=== PATIENT | male | born 1930 | race Caucasian/White ===

== ENCOUNTER 2017-07-15 12:02 | Inpatient (IN) | payer MEDICARE, OTHER ==
[2017-07-15] MEDS ORDERED: DILTIAZEM 25 MG INJ (12:25)
[2017-07-15] MEDS ORDERED: DILTIAZEM-D5W 125MG/125ML DRIP 125 ML (12:25)
[2017-07-15] MEDS: ENOXAPARIN 60 MG/0.6 ML SYG SC (12:46)
[2017-07-15 12:47] LABS: ADD MAN DIFF? NO
[2017-07-15 12:54] LABS: WHITE BLOOD COUNT 17.9 10^3/ul (4.8-10.8)
[2017-07-15 12:54] LABS: BASOPHILS % 0.2 % (0.0-2.0); HEMATOCRIT 50.8 % (42.0-52.0); LYMPHOCYTES # 0.6 10^3/ul (0.8-2.9); LYMPHOCYTES % 3.4 % (15.0-51.0); MEAN CORPUSCULAR HEMOGLOBIN 31.8 pg (29.0-33.0); MEAN CORPUSCULAR HGB CONC 33.5 g/dl (32.0-37.0); MEAN PLATELET VOLUME 10.8 fl (7.4-10.4); MONOCYTES % 5.5 % (0.0-11.0); NEUTROPHIL # 16.2 10^3/ul (1.6-7.5); NEUTROPHILS % 90.2 % (39.0-77.0); PLATELET COUNT 222 10^3/UL (140-415); RED BLOOD COUNT 5.35 10^6/ul (4.70-6.10); RED CELL DISTRIBUTION WIDTH 12.3 % (11.5-14.5)
[2017-07-15 13:17] LABS: ALANINE AMINOTRANSFERASE 24 IU/L (13-69); ALBUMIN 4.6 g/dl (3.3-4.9); ALBUMIN/GLOBULIN RATIO 1.27; ALKALINE PHOSPHATASE 84 IU/L (42-121); ANION GAP 19 (8-16); ASPARTATE AMINO TRANSFERASE 23 IU/L (15-46); BILIRUBIN,INDIRECT 1.5 mg/dl (0-1.1); BILIRUBIN,TOTAL 1.5 mg/dl (0.2-1.3); BLOOD UREA NITROGEN 23 mg/dl (7-20); CALCIUM 9.5 mg/dl (8.4-10.2); CARBON DIOXIDE 28 mmol/L (21-31); CHLORIDE 97 mmol/L (97-110); CREATININE 1.28 mg/dl (0.61-1.24); GLUCOSE 192 mg/dl (70-220); POTASSIUM 4.1 mmol/L (3.5-5.1); SODIUM 140 mmol/L (135-144); TOTAL PROTEIN 8.2 g/dl (6.1-8.1)
[2017-07-15 13:29] LABS: B-TYPE NATRIURETIC PEPTIDE 3320 PG/ML (0-450); TROPONIN-I 0.025 ng/ml (0.00-0.12)
[2017-07-15 13:32] LABS: INR 1.17; PARTIAL THROMBOPLASTIN TIME 28.6 Sec (25.0-35.0); PROTIME 15.1 Sec (11.9-14.9); PT RATIO 1.2
[2017-07-15] MEDS: CEFEPIME 1GM/50 ML (PMX) 50 ML IVPB (15:37)
[2017-07-15] MEDS: VANCOMYCIN 1 GM (PMX) 250 ML IVPB (16:34)
[2017-07-15] MEDS: SOD CHLORIDE 0.9% 1,000 ML IV (19:29)
[2017-07-15] MEDS ORDERED: ACETAMINOPHEN 325 MG TAB PO ×2 (19:30→21:30)
[2017-07-15] MEDS ORDERED: ONDANSETRON 4 MG INJ IV ×2 (19:30→21:30)
[2017-07-15] MEDS ORDERED: BISACODYL (EC) 5 MG TAB PO (21:30)
[2017-07-15] MEDS ORDERED: NACL 0.9% 3 ML SYG IV (21:30)
[2017-07-15] MEDS ORDERED: DOCUSATE SODIUM 100 MG CAP PO (21:30)
[2017-07-15 22:52] LABS: MAGNESIUM 1.6 mg/dl (1.7-2.5)
[2017-07-15] MEDS ORDERED: ALBUTEROL/IPRATROPIUM (NEB) 3 ML AMP (23:51)
[2017-07-16] MEDS: ALBUTEROL/IPRATROPIUM (NEB) 3 ML AMP HHN ×6 (00:25→21:00)
[2017-07-16] MEDS: ZOLPIDEM 5 MG TAB PO ×2 (00:44→20:26)
[2017-07-16] MEDS: PANTOPRAZOLE 40 MG INJ IV (06:00)
[2017-07-16] MEDS: predniSONE 20 MG TAB PO (08:32)
[2017-07-16 08:54] LABS: ADD MAN DIFF? NO
[2017-07-16 09:06] LABS: BASOPHILS % 0.2 % (0.0-2.0); HEMATOCRIT 44.2 % (42.0-52.0); HEMOGLOBIN 14.7 g/dl (14.0-18.0); LYMPHOCYTES # 0.8 10^3/ul (0.8-2.9); LYMPHOCYTES % 4.9 % (15.0-51.0); MEAN CORPUSCULAR HEMOGLOBIN 31.7 pg (29.0-33.0); MEAN CORPUSCULAR HGB CONC 33.3 g/dl (32.0-37.0); MEAN CORPUSCULAR VOLUME 95.3 fl (82.0-101.0); MEAN PLATELET VOLUME 11.3 fl (7.4-10.4); MONOCYTE # 1.2 10^3/ul (0.3-0.9); MONOCYTES % 7.2 % (0.0-11.0); NEUTROPHIL # 14.6 10^3/ul (1.6-7.5); NEUTROPHILS % 87.1 % (39.0-77.0); PLATELET COUNT 184 10^3/UL (140-415); RED BLOOD COUNT 4.64 10^6/ul (4.70-6.10); RED CELL DISTRIBUTION WIDTH 12.4 % (11.5-14.5)
[2017-07-16 09:06] LABS: WHITE BLOOD COUNT 16.8 10^3/ul (4.8-10.8)
[2017-07-16 09:42] LABS: ALANINE AMINOTRANSFERASE 28 IU/L (13-69); ALBUMIN 3.6 g/dl (3.3-4.9); ALBUMIN/GLOBULIN RATIO 1.16; ALKALINE PHOSPHATASE 60 IU/L (42-121); ANION GAP 14 (8-16); ASPARTATE AMINO TRANSFERASE 17 IU/L (15-46); BILIRUBIN,INDIRECT 0.9 mg/dl (0-1.1); BILIRUBIN,TOTAL 0.9 mg/dl (0.2-1.3); BLOOD UREA NITROGEN 22 mg/dl (7-20); CALCIUM 8.9 mg/dl (8.4-10.2); CARBON DIOXIDE 27 mmol/L (21-31); CHLORIDE 102 mmol/L (97-110); CREATININE 1.05 mg/dl (0.61-1.24); GLUCOSE 147 mg/dl (70-220); MAGNESIUM 1.7 mg/dl (1.7-2.5); POTASSIUM 3.9 mmol/L (3.5-5.1); SODIUM 139 mmol/L (135-144); TOTAL PROTEIN 6.7 g/dl (6.1-8.1)
[2017-07-16 09:48] LABS: HEMOGLOBIN A1C 5.7 % (0-5.9)
[2017-07-16 10:16] LABS: THYROID STIMULATING HORMONE 0.704 MIU/L (0.465-4.680)
[2017-07-16] MEDS: LEVOFLOXACIN 750MG/D5W (PMX) 150 ML IVPB (11:16)
[2017-07-16] MEDS: MAGNESIUM SULFATE 2 GM/50 ML 50 ML IVPB (13:04)
[2017-07-16] MEDS: DILTIAZEM (CD) 120 MG CAP PO ×2 (15:23→20:25)
[2017-07-16] MEDS: SALMETEROL/FLUTICASONE 100/50 INHA INH ×2 (20:24→20:39)
[2017-07-16] MEDS: MONTELUKAST 10 MG TAB PO (20:26)
[2017-07-17] MEDS: ALBUTEROL/IPRATROPIUM (NEB) 3 ML AMP HHN ×6 (01:00→20:38)
[2017-07-17] MEDS: PANTOPRAZOLE 40 MG INJ IV (06:00)
[2017-07-17 08:17] LABS: ADD MAN DIFF? NO
[2017-07-17 08:21] LABS: WHITE BLOOD COUNT 15.8 10^3/ul (4.8-10.8)
[2017-07-17 08:21] LABS: BASOPHILS % 0.1 % (0.0-2.0); EOSINOPHILS % 0.1 % (0.0-7.0); HEMOGLOBIN 14.9 g/dl (14.0-18.0); LYMPHOCYTES # 0.9 10^3/ul (0.8-2.9); LYMPHOCYTES % 5.4 % (15.0-51.0); MEAN CORPUSCULAR HEMOGLOBIN 31.9 pg (29.0-33.0); MEAN CORPUSCULAR HGB CONC 33.9 g/dl (32.0-37.0); MEAN CORPUSCULAR VOLUME 94.2 fl (82.0-101.0); MEAN PLATELET VOLUME 10.8 fl (7.4-10.4); MONOCYTE # 1.1 10^3/ul (0.3-0.9); MONOCYTES % 6.6 % (0.0-11.0); NEUTROPHIL # 13.8 10^3/ul (1.6-7.5); PLATELET COUNT 204 10^3/UL (140-415); RED BLOOD COUNT 4.67 10^6/ul (4.70-6.10); RED CELL DISTRIBUTION WIDTH 12.3 % (11.5-14.5)
[2017-07-17 08:45] LABS: ANION GAP 15 (8-16); BLOOD UREA NITROGEN 28 mg/dl (7-20); CALCIUM 8.9 mg/dl (8.4-10.2); CARBON DIOXIDE 30 mmol/L (21-31); CHLORIDE 100 mmol/L (97-110); CREATININE 1.02 mg/dl (0.61-1.24); GLUCOSE 142 mg/dl (70-220); MAGNESIUM 2.2 mg/dl (1.7-2.5); POTASSIUM 4.2 mmol/L (3.5-5.1); SODIUM 141 mmol/L (135-144)
[2017-07-17] MEDS: SALMETEROL/FLUTICASONE 100/50 INHA INH (08:58)
[2017-07-17] MEDS: TIOTROPIUM 18 MCG CAPSULE INHA DEV INH (08:59)
[2017-07-17] MEDS: predniSONE 20 MG TAB PO (09:00)
[2017-07-17] MEDS: DILTIAZEM (CD) 120 MG CAP PO ×2 (09:02→20:25)
[2017-07-17] MEDS ORDERED: ISOSORBIDE DINITRATE 5 MG TAB PO (13:00)
[2017-07-17] MEDS: ASPIRIN 81 MG TAB PO (15:03)
[2017-07-17] MEDS: AZITHROMYCIN 250 MG TAB PO (17:50)
[2017-07-17] MEDS: SALMETEROL/FLUTICASONE 250/50 INHA INH (20:24)
[2017-07-17] MEDS: THEOPHYLLINE (SR) 300 MG CAP PO (20:25)
[2017-07-17] MEDS: ZOLPIDEM 5 MG TAB PO (20:26)
[2017-07-17] MEDS: MONTELUKAST 10 MG TAB PO (20:26)
[2017-07-18] MEDS: ALBUTEROL/IPRATROPIUM (NEB) 3 ML AMP HHN ×3 (00:40→08:56)
[2017-07-18] MEDS: ZOLPIDEM 5 MG TAB PO (02:40)
[2017-07-18] MEDS: LEVOFLOXACIN 500 MG TAB PO (05:22)
[2017-07-18] MEDS: PANTOPRAZOLE 40 MG INJ IV (05:22)
[2017-07-18] MEDS: ASPIRIN 81 MG TAB PO (08:39)
[2017-07-18] MEDS: predniSONE 20 MG TAB PO (08:41)
[2017-07-18] MEDS: DILTIAZEM (CD) 120 MG CAP PO (08:44)
[2017-07-18] MEDS: SALMETEROL/FLUTICASONE 250/50 INHA INH (08:44)
[2017-07-18] MEDS: TIOTROPIUM 18 MCG CAPSULE INHA DEV INH (08:44)
== END 2017-07-18 12:20 | disposition home or self-care (01) | DRG 190 ==
LOC: E/R 12:02 → MS4 19:30
DX: J44.0 Chronic obstructive pulmonary disease with (acute) lower respiratory infection (principal); J18.9 Pneumonia, unspecified organism; N17.9 Acute kidney failure, unspecified; I47.1 Supraventricular tachycardia; I10 Essential (primary) hypertension; E83.42 Hypomagnesemia; Z99.81 Dependence on supplemental oxygen
CPT/HCPCS: 36415; 71045; 80048; 80053; 83036; 83735; 83880; 84443; 84484; 85025; 85610; 85730; 87040; 93005; 93306; 94640; 94664; 96372; 96374; 96375; 99285-25

== ENCOUNTER 2017-07-19 19:43 | Inpatient (IN) | payer MEDICARE, OTHER ==
[2017-07-20 01:12] LABS: AADO2 Arterial 109.9 mmHg (7.0-24.0); Allen Test ACCEPTAB; Arterial Base Excess 4.8 mmol/L (-3.0-3); Arterial COHb 0.9 % (0.0-3.0); Arterial Fraction of Oxyhgb 83.2 % (93.0-99.0); Arterial HCO3 29.2 mmol/L (22.0-26.0); Arterial MetHb 0.1 % (0.0-1.5); Arterial Total Hemglobin 15.9 g/dl (12.0-18.0); Arterial pCO2 42.3 mmhg (35-45); MODE NASAL CANNULA; Site Right Radial
[2017-07-20 01:14] LABS: ADD MAN DIFF? NO
[2017-07-20 01:15] LABS: WHITE BLOOD COUNT 16.6 10^3/ul (4.8-10.8)
[2017-07-20 01:15] LABS: BASOPHIL # 0.1 10^3/ul (0.0-0.1); BASOPHILS % 0.5 % (0.0-2.0); EOSINOPHILS % 0.2 % (0.0-7.0); HEMATOCRIT 49.7 % (42.0-52.0); HEMOGLOBIN 16.6 g/dl (14.0-18.0); LYMPHOCYTES # 1.6 10^3/ul (0.8-2.9); LYMPHOCYTES % 9.7 % (15.0-51.0); MEAN CORPUSCULAR HEMOGLOBIN 31.6 pg (29.0-33.0); MEAN CORPUSCULAR HGB CONC 33.4 g/dl (32.0-37.0); MEAN CORPUSCULAR VOLUME 94.5 fl (82.0-101.0); MEAN PLATELET VOLUME 10.7 fl (7.4-10.4); MONOCYTE # 1.4 10^3/ul (0.3-0.9); MONOCYTES % 8.2 % (0.0-11.0); NEUTROPHIL # 13.1 10^3/ul (1.6-7.5); NEUTROPHILS % 78.9 % (39.0-77.0); PLATELET COUNT 289 10^3/UL (140-415); RED BLOOD COUNT 5.26 10^6/ul (4.70-6.10); RED CELL DISTRIBUTION WIDTH 12.2 % (11.5-14.5)
[2017-07-20 01:50] LABS: ALANINE AMINOTRANSFERASE 84 IU/L (13-69); ALBUMIN 3.9 g/dl (3.3-4.9); ALKALINE PHOSPHATASE 106 IU/L (42-121); ANION GAP 12 (8-16); ASPARTATE AMINO TRANSFERASE 48 IU/L (15-46); BILIRUBIN,INDIRECT 0.9 mg/dl (0-1.1); BILIRUBIN,TOTAL 0.9 mg/dl (0.2-1.3); BLOOD UREA NITROGEN 26 mg/dl (7-20); CALCIUM 9.5 mg/dl (8.4-10.2); CARBON DIOXIDE 34 mmol/L (21-31); CHLORIDE 97 mmol/L (97-110); CREATININE 1.29 mg/dl (0.61-1.24); GLUCOSE 129 mg/dl (70-220); INR 1.02; POTASSIUM 4.2 mmol/L (3.5-5.1); PROTIME 13.5 Sec (11.9-14.9); PT RATIO 1.1; SODIUM 139 mmol/L (135-144); TOTAL PROTEIN 7.8 g/dl (6.1-8.1)
[2017-07-20 01:51] LABS: PARTIAL THROMBOPLASTIN TIME 25.5 Sec (25.0-35.0)
[2017-07-20 01:58] LABS: B-TYPE NATRIURETIC PEPTIDE 3920 PG/ML (0-450)
[2017-07-20 02:02] LABS: TROPONIN-I 0.041 ng/ml (0.00-0.12)
[2017-07-20] MEDS: CEFTRIAXONE 1 GM/50 ML (PMX) 50 ML IVPB (02:35)
[2017-07-20] MEDS: AZITHROMYCIN 500MG/NS (PMX) 250 ML IV (03:08)
[2017-07-20] MEDS ORDERED: NACL 0.9% 3 ML SYG IV (06:00)
[2017-07-20] MEDS ORDERED: HYDROCODONE/APAP (5/325) TAB PO (06:00)
[2017-07-20] MEDS ORDERED: VANCOMYCIN IV PER PHARMACY XX (06:00)
[2017-07-20] MEDS ORDERED: NITROGLYCERIN (SL) 0.4 MG TAB SL (06:00)
[2017-07-20] MEDS ORDERED: NA PHOSPHATE/BIPHOS 133 ML ENEMA PR (06:00)
[2017-07-20] MEDS ORDERED: ACETAMINOPHEN 325 MG TAB PO (06:00)
[2017-07-20] MEDS ORDERED: MAGNESIUM HYDROXIDE 30ML CUP PO (06:00)
[2017-07-20] MEDS ORDERED: morphine 2 MG INJ IV (06:00)
[2017-07-20] MEDS ORDERED: ALBUTEROL/IPRATROPIUM (NEB) 3 ML AMP HHN (06:00)
[2017-07-20] MEDS ORDERED: ONDANSETRON 4 MG INJ IV (06:00)
[2017-07-20 06:53] LABS: FREE T4 (FREE THYROXINE) 1.39 ng/dl (0.85-1.93)
[2017-07-20] MEDS: VANCOMYCIN 1.25 GM in SODIUM CHLORIDE 0.45 % 250 ML IVPB (07:00)
[2017-07-20] MEDS: SOD CHLORIDE 0.45% 1,000 ML IV ×2 (08:24→19:26)
[2017-07-20] MEDS: PIPER-TAZO 2.25 GM (PMX) 50 ML IVPB (08:24)
[2017-07-20] MEDS: ASPIRIN 81 MG TAB PO (08:25)
[2017-07-20] MEDS: FUROSEMIDE 40 MG INJ IV (08:25)
[2017-07-20] MEDS: PANTOPRAZOLE (EC) 40 MG TAB PO (08:25)
[2017-07-20] MEDS: DILTIAZEM (CD) 120 MG CAP PO ×2 (08:27→21:00)
[2017-07-20] MEDS: HEPARIN 5,000 UNIT/0.5 ML VIAL SC ×2 (08:31→21:08)
[2017-07-20] MEDS: TIOTROPIUM 18 MCG CAPSULE INHA DEV INH (09:00)
[2017-07-20] MEDS: SALMETEROL/FLUTICASONE 250/50 INHA INH ×2 (09:00→20:59)
[2017-07-20] MEDS ORDERED: IPRATROPIUM (NEB) 0.5 MG/2.5 ML AMP HHN (10:00)
[2017-07-20] MEDS: LEVALBUTEROL (NEB) 1.25 MG/0.5 ML AMP HHN ×3 (14:38→20:36)
[2017-07-20] MEDS: IPRATROPIUM (NEB) 0.5 MG/2.5 ML AMP HHN ×3 (14:38→20:36)
[2017-07-20] MEDS: CEFEPIME 2GM/50 ML (PMX) 50 ML IVPB ×2 (16:00→20:59)
[2017-07-20] MEDS: THEOPHYLLINE (SR) 300 MG CAP PO (21:01)
[2017-07-20] MEDS: MONTELUKAST 10 MG TAB PO (21:01)
[2017-07-21] MEDS: LEVALBUTEROL (NEB) 1.25 MG/0.5 ML AMP HHN ×6 (01:15→20:50)
[2017-07-21] MEDS: PANTOPRAZOLE (EC) 40 MG TAB PO (05:39)
[2017-07-21] MEDS: SOD CHLORIDE 0.45% 1,000 ML IV ×2 (06:19→21:55)
[2017-07-21 06:45] LABS: ADD MAN DIFF? NO
[2017-07-21 06:52] LABS: WHITE BLOOD COUNT 14.5 10^3/ul (4.8-10.8)
[2017-07-21 06:52] LABS: BASOPHIL # 0.1 10^3/ul (0.0-0.1); BASOPHILS % 0.5 % (0.0-2.0); EOSINOPHILS % 0.2 % (0.0-7.0); HEMATOCRIT 40.5 % (42.0-52.0); HEMOGLOBIN 13.7 g/dl (14.0-18.0); LYMPHOCYTES # 0.9 10^3/ul (0.8-2.9); LYMPHOCYTES % 6.1 % (15.0-51.0); MEAN CORPUSCULAR HEMOGLOBIN 31.6 pg (29.0-33.0); MEAN CORPUSCULAR HGB CONC 33.8 g/dl (32.0-37.0); MEAN CORPUSCULAR VOLUME 93.5 fl (82.0-101.0); MEAN PLATELET VOLUME 11.2 fl (7.4-10.4); MONOCYTE # 1.1 10^3/ul (0.3-0.9); MONOCYTES % 7.3 % (0.0-11.0); NEUTROPHIL # 11.8 10^3/ul (1.6-7.5); NEUTROPHILS % 81.3 % (39.0-77.0); PLATELET COUNT 228 10^3/UL (140-415); RED BLOOD COUNT 4.33 10^6/ul (4.70-6.10); RED CELL DISTRIBUTION WIDTH 12.4 % (11.5-14.5)
[2017-07-21 07:19] LABS: ANION GAP 11 (8-16); BLOOD UREA NITROGEN 25 mg/dl (7-20); CALCIUM 8.2 mg/dl (8.4-10.2); CARBON DIOXIDE 32 mmol/L (21-31); CHLORIDE 97 mmol/L (97-110); CREATININE 1.03 mg/dl (0.61-1.24); GLUCOSE 177 mg/dl (70-220); MAGNESIUM 1.6 mg/dl (1.7-2.5); PHOSPHORUS 2.9 mg/dl (2.5-4.9); POTASSIUM 3.2 mmol/L (3.5-5.1); SODIUM 137 mmol/L (135-144)
[2017-07-21 07:20] LABS: CHOLESTEROL 131 mg/dl (100-200)
[2017-07-21 07:20] LABS: CHOL/HDL RATIO 5.4 RATIO; HDL CHOLESTEROL 24 mg/dl (31-75); LDL CHOLESTEROL,CALCULATED 88 mg/dl; TRIGLYCERIDES 93 mg/dl (0-149)
[2017-07-21 07:45] LABS: THYROID STIMULATING HORMONE 0.918 MIU/L (0.465-4.680)
[2017-07-21] MEDS: IPRATROPIUM (NEB) 0.5 MG/2.5 ML AMP HHN ×4 (07:49→20:50)
[2017-07-21] MEDS ORDERED: VANCOMYCIN 750 MG in DEXTROSE 5% 150 ML IVPB (08:00)
[2017-07-21] MEDS: TIOTROPIUM 18 MCG CAPSULE INHA DEV INH (08:57)
[2017-07-21] MEDS: SALMETEROL/FLUTICASONE 250/50 INHA INH ×2 (08:57→22:12)
[2017-07-21] MEDS: DILTIAZEM (CD) 120 MG CAP PO ×2 (08:59→22:12)
[2017-07-21] MEDS: CEFEPIME 2GM/50 ML (PMX) 50 ML IVPB ×2 (09:02→22:13)
[2017-07-21] MEDS: ASPIRIN 81 MG TAB PO (09:02)
[2017-07-21] MEDS: HEPARIN 5,000 UNIT/0.5 ML VIAL SC ×2 (09:03→22:19)
[2017-07-21] MEDS: POTASSIUM CHLORIDE (SR) 20 MEQ TAB PO (09:21)
[2017-07-21] MEDS: MAGNESIUM SULFATE 2 GM/50 ML 50 ML IVPB (09:22)
[2017-07-21] MEDS ORDERED: VANCOMYCIN IV PER PHARMACY XX (09:30)
[2017-07-21 09:45] LABS: HEMOGLOBIN A1C 5.9 % (0-5.9)
[2017-07-21] MEDS: VANCOMYCIN 750 MG in DEXTROSE 5% 150 ML IVPB (11:44)
[2017-07-21] MEDS: LORAZEPAM 2 MG INJ IV (12:42)
[2017-07-21] MEDS: MONTELUKAST 10 MG TAB PO (21:00)
[2017-07-22] MEDS: LEVALBUTEROL (NEB) 1.25 MG/0.5 ML AMP HHN ×6 (00:49→21:35)
[2017-07-22] MEDS: LORAZEPAM 2 MG INJ IV (03:58)
[2017-07-22] MEDS: PANTOPRAZOLE (EC) 40 MG TAB PO (06:32)
[2017-07-22] MEDS: DOCUSATE SODIUM 100 MG CAP PO (06:32)
[2017-07-22 08:41] LABS: ADD MAN DIFF? NO
[2017-07-22 08:44] LABS: ABNORMAL IP MESSAGE 1; BASOPHIL # 0.1 10^3/ul (0.0-0.1); BASOPHILS % 0.6 % (0.0-2.0); EOSINOPHILS # 0.1 10^3/ul (0.0-0.5); EOSINOPHILS % 0.5 % (0.0-7.0); LYMPHOCYTES # 0.6 10^3/ul (0.8-2.9); LYMPHOCYTES % 4.3 % (15.0-51.0); MEAN CORPUSCULAR HEMOGLOBIN 31.8 pg (29.0-33.0); MEAN CORPUSCULAR HGB CONC 33.3 g/dl (32.0-37.0); MEAN CORPUSCULAR VOLUME 95.5 fl (82.0-101.0); MEAN PLATELET VOLUME 10.8 fl (7.4-10.4); MONOCYTE # 0.8 10^3/ul (0.3-0.9); MONOCYTES % 5.8 % (0.0-11.0); NEUTROPHIL # 11.9 10^3/ul (1.6-7.5); NEUTROPHILS % 83.7 % (39.0-77.0); PLATELET COUNT 265 10^3/UL (140-415); POSITIVE DIFF @See below; RED CELL DISTRIBUTION WIDTH 12.1 % (11.5-14.5)
[2017-07-22 08:44] LABS: WHITE BLOOD COUNT 14.2 10^3/ul (4.8-10.8)
[2017-07-22 09:04] LABS: ANION GAP 15 (8-16); BLOOD UREA NITROGEN 21 mg/dl (7-20); CALCIUM 8.1 mg/dl (8.4-10.2); CARBON DIOXIDE 29 mmol/L (21-31); CHLORIDE 99 mmol/L (97-110); CREATININE 1.38 mg/dl (0.61-1.24); GLUCOSE 139 mg/dl (70-220); POTASSIUM 4.1 mmol/L (3.5-5.1); SODIUM 139 mmol/L (135-144)
[2017-07-22] MEDS ORDERED: POTASSIUM CHLORIDE (SR) 20 MEQ TAB PO (09:04)
[2017-07-22] MEDS: IPRATROPIUM (NEB) 0.5 MG/2.5 ML AMP HHN ×4 (09:05→21:35)
[2017-07-22] MEDS: SALMETEROL/FLUTICASONE 250/50 INHA INH ×2 (10:12→20:29)
[2017-07-22] MEDS: DILTIAZEM (CD) 120 MG CAP PO ×2 (10:12→20:26)
[2017-07-22] MEDS: ASPIRIN 81 MG TAB PO (10:13)
[2017-07-22] MEDS: HEPARIN 5,000 UNIT/0.5 ML VIAL SC ×2 (10:15→20:28)
[2017-07-22] MEDS ORDERED: MAGNESIUM SULFATE 3 GM in DEXTROSE 5% 100 ML IVPB (11:00)
[2017-07-22] MEDS: CEFEPIME 2GM/50 ML (PMX) 50 ML IVPB ×2 (11:39→20:28)
[2017-07-22] MEDS: SOD CHLORIDE 0.9% 500 ML IV (12:08)
[2017-07-22] MEDS: SOD CHLORIDE 0.9% 1,000 ML IV (13:00)
[2017-07-22] MEDS: VANCOMYCIN 750 MG in DEXTROSE 5% 150 ML IVPB (17:50)
[2017-07-22] MEDS: TIOTROPIUM 18 MCG CAPSULE INHA DEV INH (17:51)
[2017-07-22] MEDS: MONTELUKAST 10 MG TAB PO (21:01)
[2017-07-23] MEDS: LORAZEPAM 2 MG INJ IV ×2 (00:24→20:46)
[2017-07-23] MEDS: SOD CHLORIDE 0.9% 1,000 ML IV ×2 (00:50→15:30)
[2017-07-23] MEDS: LEVALBUTEROL (NEB) 1.25 MG/0.5 ML AMP HHN ×6 (01:00→21:26)
[2017-07-23] MEDS: PANTOPRAZOLE (EC) 40 MG TAB PO (06:03)
[2017-07-23 08:13] LABS: ADD MAN DIFF? NO
[2017-07-23 08:16] LABS: ABNORMAL IP MESSAGE 1; BASOPHIL # 0.1 10^3/ul (0.0-0.1); BASOPHILS % 0.6 % (0.0-2.0); EOSINOPHILS # 0.3 10^3/ul (0.0-0.5); EOSINOPHILS % 2.3 % (0.0-7.0); HEMATOCRIT 39.5 % (42.0-52.0); HEMOGLOBIN 13.1 g/dl (14.0-18.0); LYMPHOCYTES # 0.9 10^3/ul (0.8-2.9); LYMPHOCYTES % 8.5 % (15.0-51.0); MEAN CORPUSCULAR HEMOGLOBIN 31.8 pg (29.0-33.0); MEAN CORPUSCULAR HGB CONC 33.2 g/dl (32.0-37.0); MEAN CORPUSCULAR VOLUME 95.9 fl (82.0-101.0); MEAN PLATELET VOLUME 10.1 fl (7.4-10.4); MONOCYTE # 0.8 10^3/ul (0.3-0.9); MONOCYTES % 7.7 % (0.0-11.0); NEUTROPHIL # 8.2 10^3/ul (1.6-7.5); NEUTROPHILS % 75.8 % (39.0-77.0); PLATELET COUNT 272 10^3/UL (140-415); POSITIVE DIFF @See below; RED BLOOD COUNT 4.12 10^6/ul (4.70-6.10); RED CELL DISTRIBUTION WIDTH 12.4 % (11.5-14.5)
[2017-07-23 08:16] LABS: WHITE BLOOD COUNT 10.8 10^3/ul (4.8-10.8)
[2017-07-23 08:54] LABS: ANION GAP 14 (8-16); BLOOD UREA NITROGEN 22 mg/dl (7-20); CALCIUM 8.1 mg/dl (8.4-10.2); CARBON DIOXIDE 28 mmol/L (21-31); CHLORIDE 101 mmol/L (97-110); GLUCOSE 107 mg/dl (70-220); POTASSIUM 4.5 mmol/L (3.5-5.1); SODIUM 138 mmol/L (135-144)
[2017-07-23] MEDS: IPRATROPIUM (NEB) 0.5 MG/2.5 ML AMP HHN ×4 (09:41→21:26)
[2017-07-23] MEDS: ASPIRIN 81 MG TAB PO (09:58)
[2017-07-23] MEDS: SALMETEROL/FLUTICASONE 250/50 INHA INH ×2 (09:58→20:43)
[2017-07-23] MEDS: CEFEPIME 2GM/50 ML (PMX) 50 ML IVPB (09:59)
[2017-07-23] MEDS: TIOTROPIUM 18 MCG CAPSULE INHA DEV INH (10:00)
[2017-07-23] MEDS: DILTIAZEM (CD) 120 MG CAP PO ×2 (10:04→20:45)
[2017-07-23] MEDS: HEPARIN 5,000 UNIT/0.5 ML VIAL SC ×2 (10:05→20:46)
[2017-07-23 12:00] LABS: VANCOMYCIN,TROUGH 8.8 ug/ml (10.0-20.0)
[2017-07-23] MEDS: IODIXANOL LOCM 100 ML BTL (12:34)
[2017-07-23] MEDS: SOD CHLORIDE 0.9% 100 ML (12:34)
[2017-07-23] MEDS: MONTELUKAST 10 MG TAB PO (20:49)
[2017-07-24] MEDS: LEVALBUTEROL (NEB) 1.25 MG/0.5 ML AMP HHN ×4 (01:27→15:30)
[2017-07-24] MEDS: hydrALAzine 20 MG INJ IV (01:27)
[2017-07-24] MEDS: SOD CHLORIDE 0.9% 1,000 ML IV ×3 (02:29→22:00)
[2017-07-24] MEDS: PANTOPRAZOLE (EC) 40 MG TAB PO (06:00)
[2017-07-24 08:30] LABS: ADD MAN DIFF? NO
[2017-07-24 08:37] LABS: BASOPHIL # 0.1 10^3/ul (0.0-0.1); BASOPHILS % 0.6 % (0.0-2.0); EOSINOPHILS # 0.1 10^3/ul (0.0-0.5); HEMATOCRIT 42.6 % (42.0-52.0); HEMOGLOBIN 14.2 g/dl (14.0-18.0); LYMPHOCYTES # 0.8 10^3/ul (0.8-2.9); LYMPHOCYTES % 6.7 % (15.0-51.0); MEAN CORPUSCULAR HEMOGLOBIN 31.3 pg (29.0-33.0); MEAN CORPUSCULAR HGB CONC 33.3 g/dl (32.0-37.0); MEAN CORPUSCULAR VOLUME 93.8 fl (82.0-101.0); MEAN PLATELET VOLUME 10.8 fl (7.4-10.4); MONOCYTE # 0.6 10^3/ul (0.3-0.9); MONOCYTES % 5.3 % (0.0-11.0); NEUTROPHIL # 9.4 10^3/ul (1.6-7.5); NEUTROPHILS % 81.9 % (39.0-77.0); PLATELET COUNT 255 10^3/UL (140-415); RED BLOOD COUNT 4.54 10^6/ul (4.70-6.10); RED CELL DISTRIBUTION WIDTH 12.4 % (11.5-14.5)
[2017-07-24 08:37] LABS: WHITE BLOOD COUNT 11.5 10^3/ul (4.8-10.8)
[2017-07-24 08:59] LABS: ANION GAP 16 (8-16); BLOOD UREA NITROGEN 22 mg/dl (7-20); CALCIUM 8.5 mg/dl (8.4-10.2); CARBON DIOXIDE 26 mmol/L (21-31); CHLORIDE 101 mmol/L (97-110); CREATININE 1.86 mg/dl (0.61-1.24); GLUCOSE 111 mg/dl (70-220); POTASSIUM 4.6 mmol/L (3.5-5.1); SODIUM 138 mmol/L (135-144)
[2017-07-24] MEDS: CEFEPIME 2GM/50 ML (PMX) 50 ML IVPB (09:24)
[2017-07-24] MEDS: SALMETEROL/FLUTICASONE 250/50 INHA INH ×2 (09:24→21:08)
[2017-07-24] MEDS: TIOTROPIUM 18 MCG CAPSULE INHA DEV INH (09:24)
[2017-07-24] MEDS: DILTIAZEM (CD) 120 MG CAP PO ×2 (09:25→21:09)
[2017-07-24] MEDS: ASPIRIN 81 MG TAB PO (09:25)
[2017-07-24] MEDS: HEPARIN 5,000 UNIT/0.5 ML VIAL SC ×2 (09:26→21:10)
[2017-07-24] MEDS: IPRATROPIUM (NEB) 0.5 MG/2.5 ML AMP HHN ×4 (09:30→20:59)
[2017-07-24] MEDS: SOD CHLORIDE 0.9% 500 ML IV (13:30)
[2017-07-24] MEDS ORDERED: GUAIFENESIN/DM 5ML CUP PO (13:30)
[2017-07-24] MEDS: MONTELUKAST 10 MG TAB PO (21:09)
[2017-07-25] MEDS: PANTOPRAZOLE (EC) 40 MG TAB PO (05:41)
[2017-07-25] MEDS: LORAZEPAM 2 MG INJ IV ×2 (05:46→21:00)
[2017-07-25 06:47] LABS: ADD MAN DIFF? NO
[2017-07-25 07:00] LABS: WHITE BLOOD COUNT 11.2 10^3/ul (4.8-10.8)
[2017-07-25 07:00] LABS: BASOPHIL # 0.1 10^3/ul (0.0-0.1); BASOPHILS % 0.4 % (0.0-2.0); EOSINOPHILS # 0.1 10^3/ul (0.0-0.5); EOSINOPHILS % 1.1 % (0.0-7.0); HEMATOCRIT 39.7 % (42.0-52.0); HEMOGLOBIN 13.4 g/dl (14.0-18.0); LYMPHOCYTES # 0.8 10^3/ul (0.8-2.9); MEAN CORPUSCULAR HEMOGLOBIN 31.9 pg (29.0-33.0); MEAN CORPUSCULAR HGB CONC 33.8 g/dl (32.0-37.0); MEAN CORPUSCULAR VOLUME 94.5 fl (82.0-101.0); MONOCYTE # 0.5 10^3/ul (0.3-0.9); MONOCYTES % 4.5 % (0.0-11.0); NEUTROPHIL # 9.4 10^3/ul (1.6-7.5); NEUTROPHILS % 83.8 % (39.0-77.0); PLATELET COUNT 264 10^3/UL (140-415); RED CELL DISTRIBUTION WIDTH 12.4 % (11.5-14.5)
[2017-07-25 07:32] LABS: ANION GAP 13 (8-16); BLOOD UREA NITROGEN 20 mg/dl (7-20); CALCIUM 8.7 mg/dl (8.4-10.2); CARBON DIOXIDE 27 mmol/L (21-31); CHLORIDE 102 mmol/L (97-110); CREATININE 1.85 mg/dl (0.61-1.24); GLUCOSE 113 mg/dl (70-220); SODIUM 138 mmol/L (135-144)
[2017-07-25 07:41] LABS: ALANINE AMINOTRANSFERASE 56 IU/L (13-69); ALKALINE PHOSPHATASE 66 IU/L (42-121); ANION GAP 13 (8-16); ASPARTATE AMINO TRANSFERASE 46 IU/L (15-46); BILIRUBIN,INDIRECT 0.3 mg/dl (0-1.1); BILIRUBIN,TOTAL 0.3 mg/dl (0.2-1.3); BLOOD UREA NITROGEN 20 mg/dl (7-20); CALCIUM 8.5 mg/dl (8.4-10.2); CARBON DIOXIDE 27 mmol/L (21-31); CHLORIDE 102 mmol/L (97-110); CREATININE 1.79 mg/dl (0.61-1.24); GLUCOSE 103 mg/dl (70-220); MAGNESIUM 1.8 mg/dl (1.7-2.5); PHOSPHORUS 3.2 mg/dl (2.5-4.9); POTASSIUM 4.4 mmol/L (3.5-5.1); SODIUM 138 mmol/L (135-144); TOTAL PROTEIN 6.3 g/dl (6.1-8.1)
[2017-07-25] MEDS: SOD CHLORIDE 0.9% 1,000 ML IV (07:55)
[2017-07-25] MEDS: ASPIRIN 81 MG TAB PO (08:33)
[2017-07-25] MEDS: HEPARIN 5,000 UNIT/0.5 ML VIAL SC ×2 (08:33→20:58)
[2017-07-25] MEDS: DILTIAZEM (CD) 120 MG CAP PO ×2 (08:33→20:57)
[2017-07-25] MEDS: TIOTROPIUM 18 MCG CAPSULE INHA DEV INH (08:33)
[2017-07-25] MEDS: SALMETEROL/FLUTICASONE 250/50 INHA INH ×2 (08:33→20:56)
[2017-07-25] MEDS: LEVALBUTEROL (NEB) 1.25 MG/0.5 ML AMP HHN ×3 (08:35→16:30)
[2017-07-25] MEDS: IPRATROPIUM (NEB) 0.5 MG/2.5 ML AMP HHN ×4 (08:35→21:00)
[2017-07-25] MEDS: CEFEPIME 2GM/50 ML (PMX) 50 ML IVPB (08:39)
[2017-07-25] MEDS: MONTELUKAST 10 MG TAB PO (20:57)
[2017-07-25] MEDS ORDERED: DOCUSATE SODIUM 100 MG CAP PO (21:00)
[2017-07-26] MEDS: LEVALBUTEROL (NEB) 1.25 MG/0.5 ML AMP HHN ×4 (00:12→17:00)
[2017-07-26] MEDS: PANTOPRAZOLE (EC) 40 MG TAB PO (05:49)
[2017-07-26] MEDS: SALMETEROL/FLUTICASONE 250/50 INHA INH ×2 (08:22→21:14)
[2017-07-26] MEDS: DILTIAZEM (CD) 120 MG CAP PO ×2 (08:23→21:13)
[2017-07-26] MEDS: ASPIRIN 81 MG TAB PO (08:23)
[2017-07-26] MEDS: HEPARIN 5,000 UNIT/0.5 ML VIAL SC ×2 (08:27→21:19)
[2017-07-26] MEDS: TIOTROPIUM 18 MCG CAPSULE INHA DEV INH ×2 (08:28→16:41)
[2017-07-26] MEDS: CEFEPIME 2GM/50 ML (PMX) 50 ML IVPB (08:30)
[2017-07-26] MEDS: IPRATROPIUM (NEB) 0.5 MG/2.5 ML AMP HHN ×4 (08:34→21:33)
[2017-07-26 09:29] LABS: ADD MAN DIFF? NO
[2017-07-26 09:34] LABS: WHITE BLOOD COUNT 11.4 10^3/ul (4.8-10.8)
[2017-07-26 09:34] LABS: BASOPHIL # 0.1 10^3/ul (0.0-0.1); BASOPHILS % 0.5 % (0.0-2.0); EOSINOPHILS # 0.2 10^3/ul (0.0-0.5); EOSINOPHILS % 1.5 % (0.0-7.0); HEMATOCRIT 42.2 % (42.0-52.0); LYMPHOCYTES # 1.1 10^3/ul (0.8-2.9); LYMPHOCYTES % 9.2 % (15.0-51.0); MEAN CORPUSCULAR HEMOGLOBIN 31.5 pg (29.0-33.0); MEAN CORPUSCULAR HGB CONC 33.2 g/dl (32.0-37.0); MEAN PLATELET VOLUME 10.1 fl (7.4-10.4); MONOCYTE # 0.7 10^3/ul (0.3-0.9); MONOCYTES % 5.9 % (0.0-11.0); NEUTROPHIL # 9.2 10^3/ul (1.6-7.5); NEUTROPHILS % 80.7 % (39.0-77.0); PLATELET COUNT 283 10^3/UL (140-415); RED BLOOD COUNT 4.44 10^6/ul (4.70-6.10); RED CELL DISTRIBUTION WIDTH 12.4 % (11.5-14.5)
[2017-07-26 10:04] LABS: ANION GAP 12 (8-16); BLOOD UREA NITROGEN 16 mg/dl (7-20); CALCIUM 9.1 mg/dl (8.4-10.2); CARBON DIOXIDE 31 mmol/L (21-31); CHLORIDE 100 mmol/L (97-110); CREATININE 1.17 mg/dl (0.61-1.24); GLUCOSE 127 mg/dl (70-220); POTASSIUM 4.1 mmol/L (3.5-5.1); SODIUM 139 mmol/L (135-144)
[2017-07-26 10:05] LABS: PHOSPHORUS 2.6 mg/dl (2.5-4.9)
[2017-07-26 10:05] LABS: MAGNESIUM 1.8 mg/dl (1.7-2.5)
[2017-07-26] MEDS: LEVOFLOXACIN 500 MG TAB PO (10:22)
[2017-07-26 15:29] LABS: ADD UMIC YES; UR ASCORBIC ACID NEGATIVE (NEGATIVE); UR BILIRUBIN (Dip) NEGATIVE (NEGATIVE); UR BLOOD (Dip) 3+ mg/dL (NEGATIVE); UR CLARITY CLEAR (CLEAR); UR COLOR YELLOW (YELLOW); UR GLUCOSE (Dip) NEGATIVE (NEGATIVE); UR KETONES (Dip) NEGATIVE (NEGATIVE); UR LEUKOCYTE ESTERASE (Dip) NEGATIVE Leu/ul (NEGATIVE); UR MUCUS FEW /HPF (NONE SEEN); UR NITRITE (Dip) NEGATIVE (NEGATIVE); UR RBC 8 /HPF (0-5); UR SPECIFIC GRAVITY (Dip) 1.013 (1.003-1.030); UR TOTAL PROTEIN (Dip) NEGATIVE (NEGATIVE); UR UROBILINOGEN (Dip) NEGATIVE (NEGATIVE); UR WBC 3 /HPF (0-5)
[2017-07-26 15:46] LABS: SODIUM,URINE RANDOM 97 mmol/L (30-90)
[2017-07-26 15:46] LABS: CREATININE,URINE RANDOM 79.02 mg/dl (20-370)
[2017-07-26] MEDS: MONTELUKAST 10 MG TAB PO (21:14)
[2017-07-26] MEDS: LORAZEPAM 2 MG INJ IV (22:25)
[2017-07-27] MEDS: PANTOPRAZOLE (EC) 40 MG TAB PO (05:56)
[2017-07-27] MEDS: LEVALBUTEROL (NEB) 1.25 MG/0.5 ML AMP HHN ×3 (08:00→13:28)
[2017-07-27 08:08] LABS: ADD MAN DIFF? NO
[2017-07-27] MEDS: IPRATROPIUM (NEB) 0.5 MG/2.5 ML AMP HHN ×2 (08:11→13:00)
[2017-07-27 08:28] LABS: BASOPHIL # 0.1 10^3/ul (0.0-0.1); BASOPHILS % 0.4 % (0.0-2.0); EOSINOPHILS # 0.2 10^3/ul (0.0-0.5); EOSINOPHILS % 1.4 % (0.0-7.0); HEMATOCRIT 40.3 % (42.0-52.0); HEMOGLOBIN 13.4 g/dl (14.0-18.0); LYMPHOCYTES % 8.5 % (15.0-51.0); MEAN CORPUSCULAR HEMOGLOBIN 31.8 pg (29.0-33.0); MEAN CORPUSCULAR HGB CONC 33.3 g/dl (32.0-37.0); MEAN CORPUSCULAR VOLUME 95.7 fl (82.0-101.0); MEAN PLATELET VOLUME 10.5 fl (7.4-10.4); MONOCYTE # 0.7 10^3/ul (0.3-0.9); MONOCYTES % 6.1 % (0.0-11.0); NEUTROPHIL # 9.3 10^3/ul (1.6-7.5); NEUTROPHILS % 82.3 % (39.0-77.0); PLATELET COUNT 265 10^3/UL (140-415); RED BLOOD COUNT 4.21 10^6/ul (4.70-6.10); RED CELL DISTRIBUTION WIDTH 12.4 % (11.5-14.5)
[2017-07-27 08:28] LABS: WHITE BLOOD COUNT 11.3 10^3/ul (4.8-10.8)
[2017-07-27 08:41] LABS: ANION GAP 14 (8-16); BLOOD UREA NITROGEN 13 mg/dl (7-20); CALCIUM 8.6 mg/dl (8.4-10.2); CARBON DIOXIDE 34 mmol/L (21-31); CHLORIDE 98 mmol/L (97-110); CREATININE 1.04 mg/dl (0.61-1.24); GLUCOSE 105 mg/dl (70-220); POTASSIUM 4.5 mmol/L (3.5-5.1); SODIUM 141 mmol/L (135-144)
[2017-07-27] MEDS: ASPIRIN 81 MG TAB PO (09:33)
[2017-07-27] MEDS: DILTIAZEM (CD) 120 MG CAP PO (09:35)
[2017-07-27] MEDS: LORAZEPAM 2 MG INJ IV (09:36)
[2017-07-27] MEDS: HEPARIN 5,000 UNIT/0.5 ML VIAL SC (09:36)
[2017-07-27] MEDS: TIOTROPIUM 18 MCG CAPSULE INHA DEV INH (09:37)
[2017-07-27] MEDS: SALMETEROL/FLUTICASONE 250/50 INHA INH (09:37)
[2017-07-28 14:27] LABS: CREATININE, RANDOM URINE 91 mg/dL (20-370); MICROALBUMIN 3.4 mg/dL; MICROALBUMIN/CREATININE RATIO 37 (<30)
== END 2017-07-27 13:34 | disposition home health service (06) | DRG 193 ==
LOC: MS4 07-20 05:38 → E/R 19:43
DX: J18.9 Pneumonia, unspecified organism (principal); J96.21 Acute and chronic respiratory failure with hypoxia; G93.49 Other encephalopathy; N17.9 Acute kidney failure, unspecified; I47.1 Supraventricular tachycardia; J44.9 Chronic obstructive pulmonary disease, unspecified; E83.42 Hypomagnesemia; I10 Essential (primary) hypertension; E87.6 Hypokalemia; E86.0 Dehydration; F41.9 Anxiety disorder, unspecified; I35.0 Nonrheumatic aortic (valve) stenosis; E83.9 Disorder of mineral metabolism, unspecified; Z99.81 Dependence on supplemental oxygen
CPT/HCPCS: 36415; 36600; 70551; 71045; 76775; 78582; 80048; 80053; 80061; 80202; 81001; 81003; 82043; 82803; 83036; 83735; 83880; 84100; 84155; 84300; 84439; 84443; 84484; 85025; 85610; 85730; 87040; 87081; 87400; 89190; 92526; 92610; 93005; 94640; 94664; 96365; 96367; 96372; 96375; 96376; 97110; 97116; 97163; 97167; 97530; 99285-25